=== PATIENT | male | born 1995 | race Caucasian/White ===

== ENCOUNTER 2017-02-14 16:32 | Emergency (ER) | payer OTHER ==
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
--- NOTE | 2017-02-14 18:35 | ED ORDER SUMMARY ---
..... Patient: NABEEL LINDSAY OrderSheet [facility] VisitID: [id number] [address] [place] [address] 21y, M Registration Date/Time: 02/14/2017 ORDER SHEET Weight: 66.6 kg (stated) Allergies: None GENERAL ORDERS: CT Head wo Cont Urgent (16:41 02/14/2017 Nasrin BROOKE) (Ack 16:42 [facility]) (16:49 [facility]) Cervical Spine 2 or 3V Urgent (17:26 02/14/2017 Nasrin BROOKE) (Ack 17:28 [facility] Tech1) (18:00 Aixa Colbert) MEDICATION ORDERS: IV FLUIDS: ORDER SHEET NOTES: [Electronically signed by Janie Goddard R.N. (19:04 02/14/2017)] [Electronically signed by Paxton Vegas MD (19:28 02/14/2017)] [Electronically locked/signed by Janie Goddard R.N. (19:04 02/14/2017)]
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
--- NOTE | 2017-02-14 18:35 | ED ORDER SUMMARY ---
..... Patient: NABEEL LINDSAY OrderSheet [facility] VisitID: [id number] [address] [place] [address] 21y, M Registration Date/Time: 02/14/2017 ORDER SHEET Weight: 66.6 kg (stated) Allergies: None GENERAL ORDERS: CT Head wo Cont Urgent (16:41 02/14/2017 Nasrin BROOKE) (Ack 16:42 [facility] Tech1) (16:49 [facility]) Cervical Spine 2 or 3V Urgent (17:26 02/14/2017 Nasrin BROOKE) (Ack 17:28 [facility] Tech1) (18:00 Aixa Colbert) MEDICATION ORDERS: IV FLUIDS: ORDER SHEET NOTES: [Electronically signed by Janie Goddard R.N. (19:04 02/14/2017)] [Electronically signed by Paxton Vegas MD (19:28 02/14/2017)] [Electronically locked/signed by Janie Goddard R.N. (19:04 02/14/2017)]
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
--- NOTE | 2017-02-14 19:28 | ED MED RECONCILIATION SUMMARY ---
Patient: NABEEL LINDSAY Medication Reconciliation Report [facility] VisitID: [id number] [address] [place] [address] 21y, M Registration Date/Time: 02/14/2017 Weight: 66.6 kg Height/Length: 70 in. BMI: 21.1 ALLERGIES: None The patient's Home Medications are listed below: CONTINUE TAKING THE FOLLOWING MEDICATIONS: FLUoxetine HCl Oral Omeprazole Oral The source(s) of the original Home Medication information: Not obtained. The following Medications were given to the patient in the Emergency Department: None. The following Medications were prescribed to the patient: Acetaminophen (available over the counter): take according to label instructions. -- Paxton Vegas MD
--- NOTE | 2017-02-14 19:28 | ED MAR SUMMARY ---
..... Medication Administration Record [facility] [address], [place] [id number] Patient: NABEEL LINDSAY Visit ID: [id number] 21y, M Weight: 66.6 kg Height/Length: 70 in BMI: 21.1 ALLERGIES: None
--- NOTE | 2017-02-14 19:28 | ED MAR SUMMARY ---
..... Medication Administration Record [facility] [address] [place], [place] [id number] Patient: NABEEL LINDSAY Visit ID: [id number] 21y, M Weight: 66.6 kg Height/Length: 70 in BMI: 21.1 ALLERGIES: None
--- NOTE | 2017-02-14 19:28 | ED MED RECONCILIATION SUMMARY ---
Patient: NABEEL LINDSAY Medication Reconciliation Report [facility] VisitID: [id number] [address] [place] [address] 21y, M Registration Date/Time: 02/14/2017 Weight: 66.6 kg Height/Length: 70 in. BMI: 21.1 ALLERGIES: None The patient's Home Medications are listed below: CONTINUE TAKING THE FOLLOWING MEDICATIONS: FLUoxetine HCl Oral Omeprazole Oral The source(s) of the original Home Medication information: Not obtained. The following Medications were given to the patient in the Emergency Department: None. The following Medications were prescribed to the patient: Acetaminophen (available over the counter): take according to label instructions. -- Paxton Vegas MD
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
== END 2017-02-14 19:03 | disposition home or self-care (01) ==
LOC: ED SRH 16:32
DX: S06.0X0A Concussion without loss of consciousness, initial encounter (principal); S16.1XXA Strain of muscle, fascia and tendon at neck level, initial encounter; S00.03XA Contusion of scalp, initial encounter; V18.0XXA Pedal cycle driver injured in noncollision transport accident in nontraffic accident, initial encounter; Y93.55 Activity, bike riding; Y99.9 Unspecified external cause status; Y92.9 Unspecified place or not applicable